=== PATIENT | female | born 1985 | race Caucasian/White ===

== ENCOUNTER 2019-02-20 19:44 | Emergency (ER) | payer MEDICAID ==
[~2019-02-20] VITALS: Ht 170.2 cm; Wt 100.2 kg
[2019-02-20 20:10] VITALS: Ht 170.2 cm; Wt 100.2 kg
[2019-02-20 21:35] LABS: UA SPECIFIC GRAVITY 1.015 (1.005-1.035); microscopic required? YES; urine erythrocyte 2+ (NEGATIVE)
[2019-02-20 22:03] VITALS: BP 177/97
== END 2019-02-20 22:03 | disposition home or self-care (01) ==
LOC: ED 19:44
PROVIDERS: Emergency Medicine
DX: N39.0 Urinary tract infection, site not specified (principal)